=== PATIENT | female | born 1965 | race Caucasian/White ===

== ENCOUNTER → 2021-01-08 | Outpatient (CLI) ==
[~2021-01-08] MED LIST: GLIM4TAB5 PO; IRON65TA2 PO; LISI10TA22 PO; METF10004 PO; MULT-90 PO; SIMV10TA21 PO
== END ==
LOC: EDUNIT# 10:20 → M LABSMTC 10:21
PROVIDERS: ATTEND Anesthesiology
DX: Z01.812 Encounter for preprocedural laboratory examination (principal); Z20.822 Contact with and (suspected) exposure to COVID-19

== ENCOUNTER 2021-01-13 06:57 | Day surgery (SDC) | payer BC ==
[~2021-01-13] VITALS: Ht 160 cm; Wt 112.0 kg
[2021-01-13] MEDS ORDERED: propofoL 200 MG/20 ML VIAL As Ordered ONE (07:02)
[2021-01-13] MEDS ORDERED: LIDOCAINE 2% 100MG/5ML SDV (FOR ANES.) As Ordered ONE (07:02)
[2021-01-13] MEDS ORDERED: NS 1,000 ML IV ONE (07:50)
[2021-01-13 08:53] VITALS: BP 151/70
== END 2021-01-13 08:54 | disposition home or self-care (01) ==
LOC: M OPP 06:57
PROVIDERS: ATTEND Surgery
DX: K21.9 Gastro-esophageal reflux disease without esophagitis (principal); K57.30 Diverticulosis of large intestine without perforation or abscess without bleeding; K64.1 Second degree hemorrhoids; D50.9 Iron deficiency anemia, unspecified; K22.8 Other specified diseases of esophagus; K22.2 Esophageal obstruction; K29.70 Gastritis, unspecified, without bleeding; E11.9 Type 2 diabetes mellitus without complications; Z79.84 Long term (current) use of oral hypoglycemic drugs; Z79.899 Other long term (current) drug therapy; Z88.5 Allergy status to narcotic agent; Z80.0 Family history of malignant neoplasm of digestive organs

== ENCOUNTER → 2021-09-17 | Outpatient (CLI) | payer BC ==
[2021-09-17 10:27] LABS: HEMOGLOBIN 10.2 g/dl (12.0-15.5); MEAN CORPUSCULAR HEMOGLOBIN 29.2 pg (27.0-33.0); MEAN CORPUSCULAR HGB CONC 31.9 g/dl (32.0-36.5); MEAN CORPUSCULAR VOLUME 91.7 fl (80.0-96.0); PLATELET COUNT, AUTOMATED 298 10^3/uL (150-450); RED BLOOD COUNT 3.49 10^6/uL (4.00-5.40); WHITE BLOOD COUNT 6.3 10^3/uL (4.0-10.0)
[2021-09-17 11:17] LABS: FREE T4 0.88 NG/DL (0.76-1.46); PERCENT SATURATION 11.1 % (13.2-45.0); THYROID STIMULATING HORMONE 2.38 uIU/ML (0.358-3.740)
== END ==
LOC: M PLALAB 08:07
PROVIDERS: ATTEND Internal Medicine Hematology
DX: D64.9 Anemia, unspecified (principal)

== ENCOUNTER 2021-10-07 10:43 | Outpatient (CLI) | payer BC ==
[~2021-10-07] VITALS: Ht 167.6 cm; Wt 104.0 kg
[~2021-10-07 10:43] MED LIST changes: +ALBUTEROL SULFATE 2.5 MG/0.5 ML INH NEB SOLN INH PRN; +EPINEPHrine INJ 1 MG/ML 1ML AMP IM PRN; +FERRIC CARBOXYMALTOSE INJ 750 MG, VIAL MATE ADAPTER 1 EACH in NS 250 ML IV ONE; +NS 1,000 ML IV SCH; +diphenhydrAMINE 50MG/ML VIAL (J1200) IV PRN; +methylPREDNISolone 125MG 2ML VIAL IV PRN
[2021-10-07 10:45] VITALS: BP 180/80
[2021-10-07 12:30] VITALS: BP 145/79
== END 2021-10-07 12:35 | disposition home or self-care (01) ==
LOC: M INFU 10:43
PROVIDERS: ATTEND Internal Medicine Hematology
DX: D50.9 Iron deficiency anemia, unspecified (principal); Z88.6 Allergy status to analgesic agent
CPT/HCPCS: 96365; J1439

== ENCOUNTER → 2021-12-23 | Outpatient (CLI) | payer BC ==
[~2021-12-23] MED LIST changes: -ALBUTEROL SULFATE 2.5 MG/0.5 ML INH NEB SOLN INH PRN; -EPINEPHrine INJ 1 MG/ML 1ML AMP IM PRN; -FERRIC CARBOXYMALTOSE INJ 750 MG, VIAL MATE ADAPTER 1 EACH in NS 250 ML IV ONE; -NS 1,000 ML IV SCH; -diphenhydrAMINE 50MG/ML VIAL (J1200) IV PRN; -methylPREDNISolone 125MG 2ML VIAL IV PRN
[2021-12-23 13:27] LABS: HEMATOCRIT 37.2 % (36.0-47.0); HEMOGLOBIN 12.2 g/dl (12.0-15.5); MEAN CORPUSCULAR HGB CONC 32.8 g/dl (32.0-36.5); MEAN CORPUSCULAR VOLUME 97.6 fl (80.0-96.0); PLATELET COUNT, AUTOMATED 249 10^3/uL (150-450); RED BLOOD COUNT 3.81 10^6/uL (4.00-5.40); WHITE BLOOD COUNT 6.5 10^3/uL (4.0-10.0)
[2021-12-23 14:37] LABS: PERCENT SATURATION 25.7 % (13.2-45.0)
== END ==
LOC: M PLALAB 11:47
PROVIDERS: ATTEND Internal Medicine Hematology
DX: D50.8 Other iron deficiency anemias (principal)

== ENCOUNTER → 2022-04-07 | Outpatient (CLI) | payer BC ==
[2022-04-07 12:19] LABS: HEMATOCRIT 36.3 % (36.0-47.0); HEMOGLOBIN 11.5 g/dl (12.0-15.5); MEAN CORPUSCULAR HEMOGLOBIN 32.2 pg (27.0-33.0); MEAN CORPUSCULAR HGB CONC 31.7 g/dl (32.0-36.5); MEAN CORPUSCULAR VOLUME 101.7 fl (80.0-96.0); PLATELET COUNT, AUTOMATED 259 10^3/uL (150-450); RED BLOOD COUNT 3.57 10^6/uL (4.00-5.40); WHITE BLOOD COUNT 6.4 10^3/uL (4.0-10.0)
[2022-04-07 13:02] LABS: PERCENT SATURATION 25.9 % (13.2-45.0)
== END ==
LOC: M PLALAB 07:12
PROVIDERS: ATTEND Internal Medicine Hematology
DX: E61.1 Iron deficiency (principal)